=== PATIENT | female | born 1955 | race Caucasian/White ===

== ENCOUNTER → 2017-11-30 10:38 | Outpatient (CLI) | payer BC, SELFPAY ==
--- NOTE | 2017-11-30 | DI.RAD.S_ITS ---
PROCEDURE: XR LUMBAR SPINE 2-3V INDICATIONS: LUMBAGO WITH SCIATICA TECHNIQUE: 3 views of the lumbar spine were acquired. COMPARISON: None. FINDINGS: Bones: 5 bka-avg-pecaudw vertebrae are present. There is normal bony alignment. No vertebral body compression fractures. No suspicious bony lesions. There is severe degenerative disc disease at L3-L4, L4-L5 and L5-S1 with disc space narrowing and disc osteophyte complex. Mild facet arthropathy is present at L5-L5 and L5-S1. Soft tissues: Overlying bowel gas pattern is normal. No suspicious soft tissue calcifications. IMPRESSION: Degenerative disc and facet disease. Dictated by: Raul Vieyra M.D. on 11/30/2017 at 15:43 Approved by: Raul Vieyra M.D. on 11/30/2017 at 15:46
== END ==
PROVIDERS: Visit Provider Physician Assistant
DX: M51.16 Intervertebral disc disorders with radiculopathy, lumbar region (principal); M51.17 Intervertebral disc disorders with radiculopathy, lumbosacral region; M48.061 Spinal stenosis, lumbar region without neurogenic claudication; M48.07 Spinal stenosis, lumbosacral region; M47.26 Other spondylosis with radiculopathy, lumbar region; M47.27 Other spondylosis with radiculopathy, lumbosacral region
CPT/HCPCS: 72100

== ENCOUNTER 2018-01-31 13:45 | Outpatient (RCR) | payer BC, SELFPAY ==
--- NOTE | 2017-11-29 13:31 | PT.OIE ---
Past Surgical History Status post appendectomy Status post delivery (03/07/93) Status post delivery (12/22/96) Status post colonoscopy Status post surgery (04/11/14) Status post tonsillectomy and adenoidectomy Provider Visit Care Team Role Provider Type Jodi Zarco MD Attending Provider Physician Specialty: Internal Medicine Address: [address] [place] [address] Email: Physical Therapy Initial Evaluation PT-OP-A Visit Information Start: 11/28/17 11:07 Freq: Status: Active Protocol: Document 11/28/17 11:10 EA (Rec: 11/28/17 11:15 EA [id number]) Out-Patient Physical Therapy Visit Information Visit Information Visit Type Initial Evaluation Visit Start Time 10:30 Visit Stop Time 11:10 Total Visit Minutes 40 Visit Number 1 Evaluation Information Evaluation Date 11/28/17 PT-OP-B Current Condition Start: 11/28/17 11:07 Freq: Status: Active Protocol: Document 11/28/17 11:10 EA (Rec: 11/28/17 11:15 EA [id number]) Current Condition History of Current Condition Onset Date 3 wks aga Current Complaints Right low back, upper gluteal, and lateral thigh pain History of Current Condition Present condition started 3 weeks ago; state 3 days after standing hip ROM exercises. Patient reports no recall any significant injury prior to condition. Patient went to her physician and was given OTC medication as she was going to [place] for 2 weeks vacation. Patient reports pain was managed temporarily with precribed pain meds during her vacation. Today she reported that pain intensity varies with position 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 Denies loss of strength but numbness, burning and shooting pain from post buttocks down to right anterior anterolat thigh in which walking, lifting, and sitting aggravates condition. Prior Treatments and Tests Precribed pain meds Future Testing and Treatments Planned Scheduled for X-Ray MRI- as necessary. 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 Current Functional Impairments (Reported) Functional Limitations- ADL's Indep Functional Limitations- Mobility/Gait Indep Functional Limitations- Work/School On sick leave Functional Limitations- Recreation/ Unable to perform light Hobbies fitness exercises routine due to pain Personal Factors Other Personal Factors That May Effect None Therapy/Recovery PT-OP-C Subjective Start: 11/28/17 11:07 Freq: Status: Active Protocol: Document 11/28/17 11:10 EA (Rec: 11/29/17 07:35 EA [id number]) OP-PT Subjective Patient Comments Patient Comments Patient wants to eliminate low back pain 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 Patient would like to get back to her fitness routine as well. Patient Reported Progress Worse Patient Questionnaires Lower Extremity Functional Scale LEFS Score 11 LEFS Impairment 80 to 99% Impaired (Score 1-16 ) Oswestry Low Back Index Oswestry Impairment 40 to 59% Impaired (Score 40- 59) PT-OP-F Manual Assessment Start: 11/28/17 11:07 Freq: Status: Active Protocol: Document 11/28/17 11:10 EA (Rec: 11/29/17 13:27 EA [id number]) Manual Assessments Soft Tissue Assessment Soft Tissue Mobility Assessment Right hip is difficulty to assess due to muscle guarding and pain. however, patient right LE is withing functional during mobility. PT-OP-G Mobility & Gait Start: 11/28/17 11:07 Freq: Status: Active Protocol: Document 11/28/17 11:10 EA (Rec: 11/29/17 07:35 EA [id number]) OP Mobility Evaluation Transfers Sit to Stand No difficulty Bed to Chair Transfers Indep Car Transfers Indep Functional Movements Lifting and Carrying Indep with difficulty Squats With minmal difficulty OP Gait Assessment Gait Gait Assistance Required: Independent Gait Deviations General Gait Pattern Antalgic Comments Gait Comments Slight antalgic gait PT-OP-J Posture/Palpation/Skin Start: 11/28/17 11:07 Freq: Status: Active Protocol: Document 11/28/17 11:10 EA (Rec: 11/29/17 07:35 EA [id number]) Posture Evaluation Position Standing Evaluation View Lateral L-Spine Posture Increased Lordosis Palpation Assessment Location One Palpation Location Upper gluteals, Piriformis, lateral thigh Palpation Findings Muscle Guarding Tenderness Palpation Details Grade 2 tenderness, Tight piriformis, ITB PT-OP-K Range of Motion Start: 11/28/17 11:07 Freq: Status: Active Protocol: Document 11/28/17 11:10 EA (Rec: 11/29/17 07:35 EA [id number]) Lumbar Spine Range of Motion Lumbar Spine Active Degrees Testing Position standinf Flexion 50 Extension 10 Rotation Left 30 Rotation Right 30 Lateral Flexion Left 10 Lateral Flexion Right 15 ROM Limitations Soft Tissue Tightness Pain Comments Limitation due to pain and muscle guarding PT-OP-L Special Tests Start: 11/28/17 11:07 Freq: Status: Active Protocol: Document 11/28/17 11:10 EA (Rec: 11/29/17 07:35 EA [id number]) Special Tests Lumbar Spine Special Tests Straight Leg Raise Test Results + Hip Special Tests Piriformis Test Results Right + PT-OP-M Strength Start: 11/28/17 11:07 Freq: Status: Active Protocol: Document 11/28/17 11:10 EA (Rec: 11/29/17 07:35 EA [id number]) Hip Strength Hip Manual Muscle Testing Left Flexion (L2) 5 Normal Extension (S1) 5 Normal Abduction 5 Normal Adduction 5 Normal External Rotation 5 Normal Internal Rotation 5 Normal Right Reason Not Measured Pain Knee Strength Knee Manual Muscle Testing Right Flexion (S2) 5 Normal Extension (L3) 5 Normal Ankle/Foot Strength Ankle and Foot Manual Muscle Testing Right Dorsiflexion (L4) 4- Good- Plantarflexion (S1) 5 Normal Comments Pain increased with D/F and Hip flexion PT-OP-Q Treatments Start: 11/28/17 11:07 Freq: Status: Active Protocol: Document 11/28/17 11:10 EA (Rec: 11/29/17 07:35 EA [id number]) Self-Care/Home Management Treatment Education Patient Education Body Mechanics Home Exercise Program Pain Management Posture Other Education Discussed body mechanics, ice application and positionig. PT-OP-T Assessment and Plan Start: 11/28/17 11:07 Freq: Status: Active Protocol: Document 11/28/17 11:10 EA (Rec: 11/28/17 11:15 EA [id number]) Physical Therapy Assessment Rehab Potential Rehabilitation Potential Good Evaluation Complexity Number of Personal Factors/Comorbidities 1-2 Number of Body Systems Impaired 3 Clinical Presentation at Evaluation Evolving Impairments Impairments Activity Tolerance Pain Posture ROM Strength Other Concerns Barriers to Rehabilitation None Goals Three Impairment Muscle guarding/ tightness to R upper gluteals Bore Mill Operator Goal (LTG) Patient will decrease muscle guarding to enhance functional mobility LTG Duration 4 wks Two Impairment Subjective pain complaint of 8 /10 PS Bore Mill Operator Goal (LTG) Patient will reports pain at severity of 2/10 LTG Duration 4 wks One Impairment Oswetry impairment results of 78% impaired. Bore Mill Operator Goal (LTG) Patient will have Oswestry results of 20% impaired LTG Duration 4 wks Assessment Summary Assessment Pleasant 62 y/o F patient presented today with acute distress due constant burning, shooting pain to right upper gluteals down to right anterolat thigh. Patient demonstrates difficulty in transitioning from supine to sit, sit to standing and gait difficulty. Special tests reveals positive with R SLR, SB test. Strength test to right LE is not properly tested due to increasing pain. Unable to get results from DTR's due to patient's muscle guarding and pain. Patient instructed and informed with results and educated with safety and home pain management. Patient instructed to see E.R. services if necessary or if pain does not relieve with rest and pain medication. In my Professional opinion, patient would benefit with skilled PT to addressed the aforementioned issues. However, MRI, is necessary at this time to improve further care. Physical Therapy Plan Frequency and Duration Frequency of Treatment 2x/Week Duration of Treatment 8 Plan of Care Start Date 11/28/17 Plan of Care End Date 01/23/18 Therapeutic Interventions Therapeutic Interventions Home Exercise Program Joint Mobilizations Manual Therapy Patient/Caregiver Education Self-Care/Home Management Soft Tissue Mobilization Therapeutic Activities Therapeutic Exercises Modalities Cold Pack/Ice Massage Electric Stimulation Hot Packs Ultrasound Next Visit Focus/Plan Next Note Type Treatment Note Next Visit Plan Decreased symptoms: IFC/Cold, Stretch. HEP, body mechanics
--- NOTE | 2017-11-29 13:31 | PT.OPPOC ---
Provider Visit Care Team Role Provider Type Jodi Zarco MD Attending Provider Physician Specialty: Internal Medicine Address: [address] [place] [address], [id number] Email: Plan Of Care PT-OP-T Assessment and Plan Start: 11/28/17 11:07 Freq: Status: Active Protocol: Document 11/28/17 11:10 EA (Rec: 11/28/17 11:15 EA [id number]) Physical Therapy Assessment Rehab Potential Rehabilitation Potential Good Evaluation Complexity Number of Personal Factors/Comorbidities 1-2 Number of Body Systems Impaired 3 Clinical Presentation at Evaluation Evolving Impairments Impairments Activity Tolerance Pain Posture ROM Strength Other Concerns Barriers to Rehabilitation None Goals Three Impairment Muscle guarding/ tightness to R upper gluteals Care Specialist Goal (LTG) Patient will decrease muscle guarding to enhance functional mobility LTG Duration 4 wks Two Impairment Subjective pain complaint of 8 /10 PS Care Home Goal (LTG) Patient will reports pain at severity of 2/10 LTG Duration 4 wks One Impairment Oswetry impairment results of 78% impaired. Care Home Goal (LTG) Patient will have Oswestry results of 20% impaired LTG Duration 4 wks Assessment Summary Assessment Pleasant 62 y/o F patient presented today with acute distress due constant burning, shooting pain to right upper gluteals down to right anterolat thigh. Patient demonstrates difficulty in transitioning from supine to sit, sit to standing and gait difficulty. Special tests reveals positive with R SLR, SB test. Strength test to right LE is not properly tested due to increasing pain. Unable to get results from DTR's due to patient's muscle guarding and pain. Patient instructed and informed with results and educated with safety and home pain management. Patient instructed to see E.R. services if necessary or if pain does not relieve with rest and pain medication. In my Professional opinion, patient would benefit with skilled PT to addressed the aforementioned issues. However, MRI, is necessary at this time to improve further care. Physical Therapy Plan Frequency and Duration Frequency of Treatment 2x/Week Duration of Treatment 8 Plan of Care Start Date 11/28/17 Plan of Care End Date 01/23/18 Therapeutic Interventions Therapeutic Interventions Home Exercise Program Joint Mobilizations Manual Therapy Patient/Caregiver Education Self-Care/Home Management Soft Tissue Mobilization Therapeutic Activities Therapeutic Exercises Modalities Cold Pack/Ice Massage Electric Stimulation Hot Packs Ultrasound Next Visit Focus/Plan Next Note Type Treatment Note Next Visit Plan Decreased symptoms: IFC/Cold, Stretch. HEP, body mechanics Plan of Care Dates Plan of Care Start Date 11/28/17 Plan of Care End Date 01/23/18 Please Sign and Return: I have reviewed this Plan of Care and certify that the skilled therapy services above are required to meet the patient?s needs. Physician Signature Date Printed Name and Credentials Clinical Instructor Signature Printed Name and Credentials
--- NOTE | 2017-11-30 12:10 | PT.OTN ---
Physical Therapy Treatment Note PT-OP-A Visit Information Start: 11/28/17 11:07 Freq: Status: Active Protocol: Document 11/30/17 10:20 EA (Rec: 11/30/17 10:30 EA [id number]) Out-Patient Physical Therapy Visit Information Visit Information Visit Type Treatment Note Visit Start Time 09:45 Visit Stop Time 10:23 Total Visit Minutes 38 Visit Number 2 PT-OP-B Current Condition Start: 11/28/17 11:07 Freq: Status: Active Protocol: Document 11/28/17 11:10 EA (Rec: 11/28/17 11:15 EA [id number]) Current Condition History of Current Condition Onset Date 3 wks aga Current Complaints Right low back, upper gluteal, and lateral thigh pain History of Current Condition Present condition started 3 weeks ago; state 3 days after standing hip ROM exercises. Patient reports no recall any significant injury prior to condition. Patient went to her physician and was given OTC medication as she was going to [place] for 2 weeks vacation. Patient reports pain was managed temporarily with precribed pain meds during her vacation. Today she reported that pain intensity varies with position 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 Denies loss of strength but numbness, burning and shooting pain from post buttocks down to right anterior anterolat thigh in which walking, lifting, and sitting aggravates condition. Prior Treatments and Tests Precribed pain meds Future Testing and Treatments Planned Scheduled for X-Ray MRI- as necessary. 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 Current Functional Impairments (Reported) Functional Limitations- ADL's Indep Functional Limitations- Mobility/Gait Indep Functional Limitations- Work/School On sick leave Functional Limitations- Recreation/ Unable to perform light Hobbies fitness exercises routine due to pain Personal Factors Other Personal Factors That May Effect None Therapy/Recovery PT-OP-C Subjective Start: 11/28/17 11:07 Freq: Status: Active Protocol: Document 11/30/17 10:20 EA (Rec: 11/30/17 10:30 EA [id number]) OP-PT Subjective Patient Comments Patient Comments Patient states pain still comes and goes and times is severe. PT-OP-F Manual Assessment Start: 11/28/17 11:07 Freq: Status: Active Protocol: Document 11/28/17 11:10 EA (Rec: 11/29/17 13:27 EA [id number]) Manual Assessments Soft Tissue Assessment Soft Tissue Mobility Assessment Right hip is difficulty to assess due to muscle guarding and pain. however, patient right LE is withing functional during mobility. PT-OP-G Mobility & Gait Start: 11/28/17 11:07 Freq: Status: Active Protocol: Document 11/28/17 11:10 EA (Rec: 11/29/17 07:35 EA [id number]) OP Mobility Evaluation Transfers Sit to Stand No difficulty Bed to Chair Transfers Indep Car Transfers Indep Functional Movements Lifting and Carrying Indep with difficulty Squats With minmal difficulty OP Gait Assessment Gait Gait Assistance Required: Independent Gait Deviations General Gait Pattern Antalgic Comments Gait Comments Slight antalgic gait PT-OP-J Posture/Palpation/Skin Start: 11/28/17 11:07 Freq: Status: Active Protocol: Document 11/28/17 11:10 EA (Rec: 11/29/17 07:35 EA [id number]) Posture Evaluation Position Standing Evaluation View Lateral L-Spine Posture Increased Lordosis Palpation Assessment Location One Palpation Location Upper gluteals, Piriformis, lateral thigh Palpation Findings Muscle Guarding Tenderness Palpation Details Grade 2 tenderness, Tight piriformis, ITB PT-OP-K Range of Motion Start: 11/28/17 11:07 Freq: Status: Active Protocol: Document 11/28/17 11:10 EA (Rec: 11/29/17 07:35 EA [id number]) Lumbar Spine Range of Motion Lumbar Spine Active Degrees Testing Position standinf Flexion 50 Extension 10 Rotation Left 30 Rotation Right 30 Lateral Flexion Left 10 Lateral Flexion Right 15 ROM Limitations Soft Tissue Tightness Pain Comments Limitation due to pain and muscle guarding PT-OP-L Special Tests Start: 11/28/17 11:07 Freq: Status: Active Protocol: Document 11/28/17 11:10 EA (Rec: 11/29/17 07:35 EA [id number]) Special Tests Lumbar Spine Special Tests Straight Leg Raise Test Results + Hip Special Tests Piriformis Test Results Right + PT-OP-M Strength Start: 11/28/17 11:07 Freq: Status: Active Protocol: Document 11/28/17 11:10 EA (Rec: 11/29/17 07:35 EA [id number]) Hip Strength Hip Manual Muscle Testing Left Flexion (L2) 5 Normal Extension (S1) 5 Normal Abduction 5 Normal Adduction 5 Normal External Rotation 5 Normal Internal Rotation 5 Normal Right Reason Not Measured Pain Knee Strength Knee Manual Muscle Testing Right Flexion (S2) 5 Normal Extension (L3) 5 Normal Ankle/Foot Strength Ankle and Foot Manual Muscle Testing Right Dorsiflexion (L4) 4- Good- Plantarflexion (S1) 5 Normal Comments Pain increased with D/F and Hip flexion PT-OP-Q Treatments Start: 11/28/17 11:07 Freq: Status: Active Protocol: Document 11/30/17 10:20 EA (Rec: 11/30/17 10:30 EA [id number]) Therapeutic Exercises Supine Exercises 3 Supine Exercise Name Figure of 4 Reps/Minutes x 30 SH 2 Supine Exercise Name SKTC with PPT Reps/Minutes x 5SH x 5 reps each leg 1 Supine Exercise Name PPT Reps/Minutes x 5 SH x 10 reps Prone Exercises 1 Prone Exercise Name Quadruped lumabr flexion Reps/Minutes x 10 reps x 1 Self-Care/Home Management Treatment Education Patient Education Home Exercise Program Other Education HEP copy provided, demonstrates performed and educated. Advised proper bed positioning PT-OP-R Modalities Start: 11/28/17 11:07 Freq: Status: Active Protocol: Document 11/30/17 10:20 EA (Rec: 11/30/17 10:30 EA [id number]) Electric Stimulation Electric Stimulation Interferential Current (IFC) Body Location Right upper gluteals and paralumbars Duration (Minutes) 15 Intensity 9 Patient Position Hooklying Combined With Heat/Cold Cold Pack PT-OP-T Assessment and Plan Start: 11/28/17 11:07 Freq: Status: Active Protocol: Document 11/30/17 10:20 EA (Rec: 11/30/17 10:30 EA [id number]) Physical Therapy Assessment Assessment Summary Assessment Patient is quite teary and had difficulty with figure of 4 stretch, however tolerated with adjusted range. Patient well performed HEP and understands safety. Physical Therapy Plan Next Visit Focus/Plan Next Visit Plan Cont to with current plan. Add cardio exercises as tolerated and standing wall exercises.
--- NOTE | 2017-12-05 12:22 | PT.OTN ---
Physical Therapy Treatment Note PT-OP-A Visit Information Start: 11/28/17 11:07 Freq: Status: Active Protocol: Document 12/05/17 09:43 EA (Rec: 12/05/17 09:49 EA [id number]) Out-Patient Physical Therapy Visit Information Visit Information Visit Type Treatment Note Visit Start Time 09:45 Visit Stop Time 10:25 Total Visit Minutes 40 Visit Number 3 PT-OP-B Current Condition Start: 11/28/17 11:07 Freq: Status: Active Protocol: Document 11/28/17 11:10 EA (Rec: 11/28/17 11:15 EA [id number]) Current Condition History of Current Condition Onset Date 3 wks aga Current Complaints Right low back, upper gluteal, and lateral thigh pain History of Current Condition Present condition started 3 weeks ago; state 3 days after standing hip ROM exercises. Patient reports no recall any significant injury prior to condition. Patient went to her physician and was given OTC medication as she was going to [place] for 2 weeks vacation. Patient reports pain was managed temporarily with precribed pain meds during her vacation. Today she reported that pain intensity varies with position 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 Denies loss of strength but numbness, burning and shooting pain from post buttocks down to right anterior anterolat thigh in which walking, lifting, and sitting aggravates condition. Prior Treatments and Tests Precribed pain meds Future Testing and Treatments Planned Scheduled for X-Ray MRI- as necessary. 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 Current Functional Impairments (Reported) Functional Limitations- ADL's Indep Functional Limitations- Mobility/Gait Indep Functional Limitations- Work/School On sick leave Functional Limitations- Recreation/ Unable to perform light Hobbies fitness exercises routine due to pain Personal Factors Other Personal Factors That May Effect None Therapy/Recovery PT-OP-C Subjective Start: 11/28/17 11:07 Freq: Status: Active Protocol: Document 12/05/17 09:52 EA (Rec: 12/05/17 10:15 EA [id number]) OP-PT Subjective Patient Comments Patient Comments Pt reports she is much feeling better today than last week. Patient Reported Progress Improving PT-OP-F Manual Assessment Start: 11/28/17 11:07 Freq: Status: Active Protocol: Document 11/28/17 11:10 EA (Rec: 11/29/17 13:27 EA [id number]) Manual Assessments Soft Tissue Assessment Soft Tissue Mobility Assessment Right hip is difficulty to assess due to muscle guarding and pain. however, patient right LE is withing functional during mobility. PT-OP-G Mobility & Gait Start: 11/28/17 11:07 Freq: Status: Active Protocol: Document 11/28/17 11:10 EA (Rec: 11/29/17 07:35 EA [id number]) OP Mobility Evaluation Transfers Sit to Stand No difficulty Bed to Chair Transfers Indep Car Transfers Indep Functional Movements Lifting and Carrying Indep with difficulty Squats With minmal difficulty OP Gait Assessment Gait Gait Assistance Required: Independent Gait Deviations General Gait Pattern Antalgic Comments Gait Comments Slight antalgic gait PT-OP-J Posture/Palpation/Skin Start: 11/28/17 11:07 Freq: Status: Active Protocol: Document 11/28/17 11:10 EA (Rec: 11/29/17 07:35 EA [id number]) Posture Evaluation Position Standing Evaluation View Lateral L-Spine Posture Increased Lordosis Palpation Assessment Location One Palpation Location Upper gluteals, Piriformis, lateral thigh Palpation Findings Muscle Guarding Tenderness Palpation Details Grade 2 tenderness, Tight piriformis, ITB PT-OP-K Range of Motion Start: 11/28/17 11:07 Freq: Status: Active Protocol: Document 11/28/17 11:10 EA (Rec: 11/29/17 07:35 EA [id number]) Lumbar Spine Range of Motion Lumbar Spine Active Degrees Testing Position standinf Flexion 50 Extension 10 Rotation Left 30 Rotation Right 30 Lateral Flexion Left 10 Lateral Flexion Right 15 ROM Limitations Soft Tissue Tightness Pain Comments Limitation due to pain and muscle guarding PT-OP-L Special Tests Start: 11/28/17 11:07 Freq: Status: Active Protocol: Document 11/28/17 11:10 EA (Rec: 11/29/17 07:35 EA [id number]) Special Tests Lumbar Spine Special Tests Straight Leg Raise Test Results + Hip Special Tests Piriformis Test Results Right + PT-OP-M Strength Start: 11/28/17 11:07 Freq: Status: Active Protocol: Document 11/28/17 11:10 EA (Rec: 11/29/17 07:35 EA [id number]) Hip Strength Hip Manual Muscle Testing Left Flexion (L2) 5 Normal Extension (S1) 5 Normal Abduction 5 Normal Adduction 5 Normal External Rotation 5 Normal Internal Rotation 5 Normal Right Reason Not Measured Pain Knee Strength Knee Manual Muscle Testing Right Flexion (S2) 5 Normal Extension (L3) 5 Normal Ankle/Foot Strength Ankle and Foot Manual Muscle Testing Right Dorsiflexion (L4) 4- Good- Plantarflexion (S1) 5 Normal Comments Pain increased with D/F and Hip flexion PT-OP-Q Treatments Start: 11/28/17 11:07 Freq: Status: Active Protocol: Document 12/05/17 09:52 EA (Rec: 12/05/17 10:15 EA [id number]) Cardio Equipment Recumbent Stepper (Sci-Fit) Duration (Minutes) 5 Resistance 1.5 Seat Position 12 Therapeutic Exercises Supine Exercises 4 Supine Exercise Name PPT with marching Reps/Minutes x 5SH x 5 reps 3 Supine Exercise Name Figure of 4 Reps/Minutes x 30 SH 2 Supine Exercise Name SKTC with PPT Reps/Minutes x 5SH x 5 reps each leg 1 Supine Exercise Name PPT Reps/Minutes x 5 SH x 10 reps Prone Exercises 1 Prone Exercise Name Quadruped lumbar flexion Reps/Minutes x 10 reps x 1 Manual Therapy Treatment Soft Tissue Mobilization 1 Body Location upper gluteals, periformis Mobilization Type Myofascial Release Sustained Pressure Intensity/Depth Superficial Body Position Sidelying PT-OP-R Modalities Start: 11/28/17 11:07 Freq: Status: Active Protocol: Document 12/05/17 09:52 EA (Rec: 12/05/17 10:15 EA [id number]) Electric Stimulation Electric Stimulation Interferential Current (IFC) Body Location Right upper gluteals and paralumbars Duration (Minutes) 15 Intensity 9 Patient Position Hooklying Combined With Heat/Cold Cold Pack PT-OP-T Assessment and Plan Start: 11/28/17 11:07 Freq: Status: Active Protocol: Document 12/05/17 09:52 EA (Rec: 12/05/17 10:15 EA [id number]) Physical Therapy Assessment Assessment Summary Assessment Tolerated supine exercises; quite hard to tolerate STM. Patient showed less apprehension in all Functional mobility at this time. Cont with current plan. Physical Therapy Plan Next Visit Focus/Plan Next Note Type Treatment Note Next Visit Plan Cont with current plan.
--- NOTE | 2017-12-07 10:35 | PT.OTN ---
Physical Therapy Treatment Note PT-OP-A Visit Information Start: 11/28/17 11:07 Freq: Status: Active Protocol: Document 12/07/17 10:31 EA (Rec: 12/07/17 10:31 EA [id number]) Out-Patient Physical Therapy Visit Information Visit Information Visit Type Treatment Note Visit Start Time 09:45 Visit Stop Time 10:25 Total Visit Minutes 40 Visit Number 4 PT-OP-B Current Condition Start: 11/28/17 11:07 Freq: Status: Active Protocol: Document 11/28/17 11:10 EA (Rec: 11/28/17 11:15 EA [id number]) Current Condition History of Current Condition Onset Date 3 wks aga Current Complaints Right low back, upper gluteal, and lateral thigh pain History of Current Condition Present condition started 3 weeks ago; state 3 days after standing hip ROM exercises. Patient reports no recall any significant injury prior to condition. Patient went to her physician and was given OTC medication as she was going to [place] for 2 weeks vacation. Patient reports pain was managed temporarily with precribed pain meds during her vacation. Today she reported that pain intensity varies with position 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 Denies loss of strength but numbness, burning and shooting pain from post buttocks down to right anterior anterolat thigh in which walking, lifting, and sitting aggravates condition. Prior Treatments and Tests Precribed pain meds Future Testing and Treatments Planned Scheduled for X-Ray MRI- as necessary. 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 Current Functional Impairments (Reported) Functional Limitations- ADL's Indep Functional Limitations- Mobility/Gait Indep Functional Limitations- Work/School On sick leave Functional Limitations- Recreation/ Unable to perform light Hobbies fitness exercises routine due to pain Personal Factors Other Personal Factors That May Effect None Therapy/Recovery PT-OP-C Subjective Start: 11/28/17 11:07 Freq: Status: Active Protocol: Document 12/07/17 10:16 EA (Rec: 12/07/17 10:31 EA [id number]) OP-PT Subjective Patient Comments Patient Comments Pt reports she is improving as she is able to carry her 30 lbs grandchild; states pain frequency is nor twice a day. Pt also reports that her neeck is quite sore after last excercise session and she mentioned about partial sit-up . Patient states today that she is much better and no neck pain. Patient also mention [place] she will be seeing her ortho surgeon. PT-OP-F Manual Assessment Start: 11/28/17 11:07 Freq: Status: Active Protocol: Document 11/28/17 11:10 EA (Rec: 11/29/17 13:27 EA [id number]) Manual Assessments Soft Tissue Assessment Soft Tissue Mobility Assessment Right hip is difficulty to assess due to muscle guarding and pain. however, patient right LE is withing functional during mobility. PT-OP-G Mobility & Gait Start: 11/28/17 11:07 Freq: Status: Active Protocol: Document 11/28/17 11:10 EA (Rec: 11/29/17 07:35 EA [id number]) OP Mobility Evaluation Transfers Sit to Stand No difficulty Bed to Chair Transfers Indep Car Transfers Indep Functional Movements Lifting and Carrying Indep with difficulty Squats With minmal difficulty OP Gait Assessment Gait Gait Assistance Required: Independent Gait Deviations General Gait Pattern Antalgic Comments Gait Comments Slight antalgic gait PT-OP-J Posture/Palpation/Skin Start: 11/28/17 11:07 Freq: Status: Active Protocol: Document 11/28/17 11:10 EA (Rec: 11/29/17 07:35 EA [id number]) Posture Evaluation Position Standing Evaluation View Lateral L-Spine Posture Increased Lordosis Palpation Assessment Location One Palpation Location Upper gluteals, Piriformis, lateral thigh Palpation Findings Muscle Guarding Tenderness Palpation Details Grade 2 tenderness, Tight piriformis, ITB PT-OP-K Range of Motion Start: 11/28/17 11:07 Freq: Status: Active Protocol: Document 11/28/17 11:10 EA (Rec: 11/29/17 07:35 EA [id number]) Lumbar Spine Range of Motion Lumbar Spine Active Degrees Testing Position standinf Flexion 50 Extension 10 Rotation Left 30 Rotation Right 30 Lateral Flexion Left 10 Lateral Flexion Right 15 ROM Limitations Soft Tissue Tightness Pain Comments Limitation due to pain and muscle guarding PT-OP-L Special Tests Start: 11/28/17 11:07 Freq: Status: Active Protocol: Document 11/28/17 11:10 EA (Rec: 11/29/17 07:35 EA [id number]) Special Tests Lumbar Spine Special Tests Straight Leg Raise Test Results + Hip Special Tests Piriformis Test Results Right + PT-OP-M Strength Start: 11/28/17 11:07 Freq: Status: Active Protocol: Document 11/28/17 11:10 EA (Rec: 11/29/17 07:35 EA [id number]) Hip Strength Hip Manual Muscle Testing Left Flexion (L2) 5 Normal Extension (S1) 5 Normal Abduction 5 Normal Adduction 5 Normal External Rotation 5 Normal Internal Rotation 5 Normal Right Reason Not Measured Pain Knee Strength Knee Manual Muscle Testing Right Flexion (S2) 5 Normal Extension (L3) 5 Normal Ankle/Foot Strength Ankle and Foot Manual Muscle Testing Right Dorsiflexion (L4) 4- Good- Plantarflexion (S1) 5 Normal Comments Pain increased with D/F and Hip flexion PT-OP-Q Treatments Start: 11/28/17 11:07 Freq: Status: Active Protocol: Document 12/07/17 10:16 EA (Rec: 12/07/17 10:31 EA [id number]) Cardio Equipment Recumbent Stepper (Sci-Fit) Duration (Minutes) 5 Resistance 1 Seat Position 12 Therapeutic Exercises Supine Exercises 4 Supine Exercise Name PPT with marching Reps/Minutes x 5SH x 5 reps 3 Supine Exercise Name Figure of 4 Reps/Minutes x 30 SH 2 Supine Exercise Name SKTC with PPT Reps/Minutes x 5SH x 5 reps each leg 1 Supine Exercise Name PPT Reps/Minutes x 5 SH x 10 reps Standing Exercises 1 Standing Exercise Name Floor to knee basket lift Resistance 8 lbs Reps/Minutes x 2 reps Comments Proper body mechanics was implemented. Manual Therapy Treatment Soft Tissue Mobilization 1 Body Location upper gluteals, periformis Mobilization Type Myofascial Release Sustained Pressure Intensity/Depth Superficial Body Position Sidelying Comments not performed due to decreased tolerance. PT-OP-R Modalities Start: 11/28/17 11:07 Freq: Status: Active Protocol: Document 12/07/17 10:16 EA (Rec: 12/07/17 10:31 EA [id number]) Electric Stimulation Electric Stimulation Interferential Current (IFC) Body Location Right upper gluteals and paralumbars Duration (Minutes) 15 Intensity 10 Patient Position Hooklying Combined With Heat/Cold Hot Pack Comments agreeable to try hot pack to right low back and hip Hot Pack/Cold Pack Treatment Hot Pack Location Right low back and post hip PT-OP-T Assessment and Plan Start: 11/28/17 11:07 Freq: Status: Active Protocol: Document 12/07/17 10:16 EA (Rec: 12/07/17 10:31 EA [id number]) Physical Therapy Assessment Assessment Summary Assessment Tolerated therex well with no discomfort noted except with manual thera exercises which was not performed today. No noted any signs of acute distress before and after session while at rest and with all mobility. Pt was advised to seek her primary care physician if symptoms does not improve with therapy. Physical Therapy Plan Next Visit Focus/Plan Next Note Type Treatment Note Next Visit Plan Cont with current plan. re- assess previous treatment response and as well with the use of heat.
--- NOTE | 2017-12-13 12:12 | PT.OTN ---
Physical Therapy Treatment Note PT-OP-A Visit Information Start: 11/28/17 11:07 Freq: Status: Active Protocol: Document 12/07/17 10:31 EA (Rec: 12/07/17 10:31 EA [id number]) Out-Patient Physical Therapy Visit Information Visit Information Visit Type Treatment Note Visit Start Time 09:45 Visit Stop Time 10:25 Total Visit Minutes 40 Visit Number 4 PT-OP-B Current Condition Start: 11/28/17 11:07 Freq: Status: Active Protocol: Document 11/28/17 11:10 EA (Rec: 11/28/17 11:15 EA [id number]) Current Condition History of Current Condition Onset Date 3 wks aga Current Complaints Right low back, upper gluteal, and lateral thigh pain History of Current Condition Present condition started 3 weeks ago; state 3 days after standing hip ROM exercises. Patient reports no recall any significant injury prior to condition. Patient went to her physician and was given OTC medication as she was going to [place] for 2 weeks vacation. Patient reports pain was managed temporarily with precribed pain meds during her vacation. Today she reported that pain intensity varies with position 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 Denies loss of strength but numbness, burning and shooting pain from post buttocks down to right anterior anterolat thigh in which walking, lifting, and sitting aggravates condition. Prior Treatments and Tests Precribed pain meds Future Testing and Treatments Planned Scheduled for X-Ray MRI- as necessary. 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 Current Functional Impairments (Reported) Functional Limitations- ADL's Indep Functional Limitations- Mobility/Gait Indep Functional Limitations- Work/School On sick leave Functional Limitations- Recreation/ Unable to perform light Hobbies fitness exercises routine due to pain Personal Factors Other Personal Factors That May Effect None Therapy/Recovery PT-OP-C Subjective Start: 11/28/17 11:07 Freq: Status: Active Protocol: Document 12/13/17 10:38 EA (Rec: 12/13/17 11:07 EA [id number]) OP-PT Subjective Patient Comments Patient Comments Pt ambulates today with no signs of apprehension or acute distress. 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 Patient also reports that she jhoana right knee discomfort after doing hip stretch, however much feeling better now. Patient also reports use of heat last session made her back losen. PT-OP-F Manual Assessment Start: 11/28/17 11:07 Freq: Status: Active Protocol: Document 11/28/17 11:10 EA (Rec: 11/29/17 13:27 EA [id number]) Manual Assessments Soft Tissue Assessment Soft Tissue Mobility Assessment Right hip is difficulty to assess due to muscle guarding and pain. however, patient right LE is withing functional during mobility. PT-OP-G Mobility & Gait Start: 11/28/17 11:07 Freq: Status: Active Protocol: Document 11/28/17 11:10 EA (Rec: 11/29/17 07:35 EA [id number]) OP Mobility Evaluation Transfers Sit to Stand No difficulty Bed to Chair Transfers Indep Car Transfers Indep Functional Movements Lifting and Carrying Indep with difficulty Squats With minmal difficulty OP Gait Assessment Gait Gait Assistance Required: Independent Gait Deviations General Gait Pattern Antalgic Comments Gait Comments Slight antalgic gait PT-OP-J Posture/Palpation/Skin Start: 11/28/17 11:07 Freq: Status: Active Protocol: Document 11/28/17 11:10 EA (Rec: 11/29/17 07:35 EA [id number]) Posture Evaluation Position Standing Evaluation View Lateral L-Spine Posture Increased Lordosis Palpation Assessment Location One Palpation Location Upper gluteals, Piriformis, lateral thigh Palpation Findings Muscle Guarding Tenderness Palpation Details Grade 2 tenderness, Tight piriformis, ITB PT-OP-K Range of Motion Start: 11/28/17 11:07 Freq: Status: Active Protocol: Document 11/28/17 11:10 EA (Rec: 11/29/17 07:35 EA [id number]) Lumbar Spine Range of Motion Lumbar Spine Active Degrees Testing Position standinf Flexion 50 Extension 10 Rotation Left 30 Rotation Right 30 Lateral Flexion Left 10 Lateral Flexion Right 15 ROM Limitations Soft Tissue Tightness Pain Comments Limitation due to pain and muscle guarding PT-OP-L Special Tests Start: 11/28/17 11:07 Freq: Status: Active Protocol: Document 11/28/17 11:10 EA (Rec: 11/29/17 07:35 EA [id number]) Special Tests Lumbar Spine Special Tests Straight Leg Raise Test Results + Hip Special Tests Piriformis Test Results Right + PT-OP-M Strength Start: 11/28/17 11:07 Freq: Status: Active Protocol: Document 11/28/17 11:10 EA (Rec: 11/29/17 07:35 EA [id number]) Hip Strength Hip Manual Muscle Testing Left Flexion (L2) 5 Normal Extension (S1) 5 Normal Abduction 5 Normal Adduction 5 Normal External Rotation 5 Normal Internal Rotation 5 Normal Right Reason Not Measured Pain Knee Strength Knee Manual Muscle Testing Right Flexion (S2) 5 Normal Extension (L3) 5 Normal Ankle/Foot Strength Ankle and Foot Manual Muscle Testing Right Dorsiflexion (L4) 4- Good- Plantarflexion (S1) 5 Normal Comments Pain increased with D/F and Hip flexion PT-OP-Q Treatments Start: 11/28/17 11:07 Freq: Status: Active Protocol: Document 12/13/17 10:38 EA (Rec: 12/13/17 11:07 EA [id number]) Cardio Equipment Recumbent Bicycle Duration (Minutes) 5 Resistance 4 Therapeutic Exercises Supine Exercises 4 Supine Exercise Name PPT with marching Reps/Minutes x 5SH x 5 reps 3 Supine Exercise Name Figure of 4 Reps/Minutes x 30 SH 2 Supine Exercise Name SKTC with PPT Reps/Minutes x 5SH x 5 reps each leg 1 Supine Exercise Name PPT Reps/Minutes x 5 SH x 10 reps Standing Exercises 1 Standing Exercise Name wall squat with PPT Reps/Minutes x 5SH x 5 reps x 2 sets PT-OP-R Modalities Start: 11/28/17 11:07 Freq: Status: Active Protocol: Document 12/13/17 10:38 EA (Rec: 12/13/17 11:07 EA [id number]) Electric Stimulation Electric Stimulation Interferential Current (IFC) Body Location Right upper gluteals and paralumbars Duration (Minutes) 15 Intensity 10 Patient Position Hooklying Combined With Heat/Cold Hot Pack Comments agreeable to try hot pack to right low back and hip Hot Pack/Cold Pack Treatment Hot Pack Location Right low back and post hip PT-OP-T Assessment and Plan Start: 11/28/17 11:07 Freq: Status: Active Protocol: Document 12/13/17 10:38 EA (Rec: 12/13/17 11:07 EA [id number]) Physical Therapy Assessment Assessment Summary Assessment No noted of any discomfort during therex except with lower trunk rotation stretch. Very slight tenderness noted only in low back and R upper gluteals during palpation. Pt requested to get schedule after seeing her ortho doctor seven days from now. Patient is progressing at this time. Physical Therapy Plan Next Visit Focus/Plan Next Note Type Treatment Note Next Visit Plan Cont with current plan; re- assess
--- NOTE | 2017-12-27 13:59 | PT.OTN ---
Physical Therapy Treatment Note PT-OP-A Visit Information Start: 11/28/17 11:07 Freq: Status: Active Protocol: Document 12/27/17 13:06 EA (Rec: 12/27/17 13:48 EA [id number]) Out-Patient Physical Therapy Visit Information Visit Information Visit Type Treatment Note Visit Start Time 13:00 Visit Stop Time 13:45 Total Visit Minutes 40 PT-OP-B Current Condition Start: 11/28/17 11:07 Freq: Status: Active Protocol: Document 11/28/17 11:10 EA (Rec: 11/28/17 11:15 EA [id number]) Current Condition History of Current Condition Onset Date 3 wks aga Current Complaints Right low back, upper gluteal, and lateral thigh pain History of Current Condition Present condition started 3 weeks ago; state 3 days after standing hip ROM exercises. Patient reports no recall any significant injury prior to condition. Patient went to her physician and was given OTC medication as she was going to [place] for 2 weeks vacation. Patient reports pain was managed temporarily with precribed pain meds during her vacation. Today she reported that pain intensity varies with position 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 Denies loss of strength but numbness, burning and shooting pain from post buttocks down to right anterior anterolat thigh in which walking, lifting, and sitting aggravates condition. Prior Treatments and Tests Precribed pain meds Future Testing and Treatments Planned Scheduled for X-Ray MRI- as necessary. 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 Current Functional Impairments (Reported) Functional Limitations- ADL's Indep Functional Limitations- Mobility/Gait Indep Functional Limitations- Work/School On sick leave Functional Limitations- Recreation/ Unable to perform light Hobbies fitness exercises routine due to pain Personal Factors Other Personal Factors That May Effect None Therapy/Recovery PT-OP-C Subjective Start: 11/28/17 11:07 Freq: Status: Active Protocol: Document 12/27/17 13:06 EA (Rec: 12/27/17 13:48 EA [id number]) OP-PT Subjective Patient Comments Patient Comments Pt reports that she is not confident to come back to work tomoorrow as she scare it might aggravate the back; states no pain but stiffness to right hip and denies weaknes to hip region. Patient also reports doctor recommends no more than 25 lbs lifting restrictions. Patient also brought MRI reports that indicated L2-L3 disc extrusion. Patient Reported Progress Improving PT-OP-F Manual Assessment Start: 11/28/17 11:07 Freq: Status: Active Protocol: Document 11/28/17 11:10 EA (Rec: 11/29/17 13:27 EA [id number]) Manual Assessments Soft Tissue Assessment Soft Tissue Mobility Assessment Right hip is difficulty to assess due to muscle guarding and pain. however, patient right LE is withing functional during mobility. PT-OP-G Mobility & Gait Start: 11/28/17 11:07 Freq: Status: Active Protocol: Document 11/28/17 11:10 EA (Rec: 11/29/17 07:35 EA [id number]) OP Mobility Evaluation Transfers Sit to Stand No difficulty Bed to Chair Transfers Indep Car Transfers Indep Functional Movements Lifting and Carrying Indep with difficulty Squats With minmal difficulty OP Gait Assessment Gait Gait Assistance Required: Independent Gait Deviations General Gait Pattern Antalgic Comments Gait Comments Slight antalgic gait PT-OP-J Posture/Palpation/Skin Start: 11/28/17 11:07 Freq: Status: Active Protocol: Document 11/28/17 11:10 EA (Rec: 11/29/17 07:35 EA [id number]) Posture Evaluation Position Standing Evaluation View Lateral L-Spine Posture Increased Lordosis Palpation Assessment Location One Palpation Location Upper gluteals, Piriformis, lateral thigh Palpation Findings Muscle Guarding Tenderness Palpation Details Grade 2 tenderness, Tight piriformis, ITB PT-OP-K Range of Motion Start: 11/28/17 11:07 Freq: Status: Active Protocol: Document 11/28/17 11:10 EA (Rec: 11/29/17 07:35 EA [id number]) Lumbar Spine Range of Motion Lumbar Spine Active Degrees Testing Position standinf Flexion 50 Extension 10 Rotation Left 30 Rotation Right 30 Lateral Flexion Left 10 Lateral Flexion Right 15 ROM Limitations Soft Tissue Tightness Pain Comments Limitation due to pain and muscle guarding PT-OP-L Special Tests Start: 11/28/17 11:07 Freq: Status: Active Protocol: Document 11/28/17 11:10 EA (Rec: 11/29/17 07:35 EA [id number]) Special Tests Lumbar Spine Special Tests Straight Leg Raise Test Results + Hip Special Tests Piriformis Test Results Right + PT-OP-M Strength Start: 11/28/17 11:07 Freq: Status: Active Protocol: Document 11/28/17 11:10 EA (Rec: 11/29/17 07:35 EA [id number]) Hip Strength Hip Manual Muscle Testing Left Flexion (L2) 5 Normal Extension (S1) 5 Normal Abduction 5 Normal Adduction 5 Normal External Rotation 5 Normal Internal Rotation 5 Normal Right Reason Not Measured Pain Knee Strength Knee Manual Muscle Testing Right Flexion (S2) 5 Normal Extension (L3) 5 Normal Ankle/Foot Strength Ankle and Foot Manual Muscle Testing Right Dorsiflexion (L4) 4- Good- Plantarflexion (S1) 5 Normal Comments Pain increased with D/F and Hip flexion PT-OP-Q Treatments Start: 11/28/17 11:07 Freq: Status: Active Protocol: Document 12/27/17 13:06 EA (Rec: 12/27/17 13:48 EA [id number]) Cardio Equipment Recumbent Stepper (Sci-Fit) Duration (Minutes) 6 Resistance 1 Seat Position 12 Therapeutic Exercises Supine Exercises 4 Supine Exercise Name PPT with marching Reps/Minutes x 5SH x 5 reps 2 Supine Exercise Name SKTC with PPT Reps/Minutes x 5SH x 5 reps each leg 1 Supine Exercise Name PPT Reps/Minutes x 5 SH x 10 reps Prone Exercises 2 Prone Exercise Name QL stretch: child pose Reps/Minutes x 15 SH x 3 reps 1 Prone Exercise Name Quadruped lumbar flexion Reps/Minutes x 10 reps x 1 Standing Exercises 2 Standing Exercise Name sit to stand squat Reps/Minutes x 10 reps 1 Standing Exercise Name wall squat with PPT Reps/Minutes x 5SH x 5 reps x 2 sets Therapeutic Activity Therapeutic Activity 1 Name Floor to waist lift Reps/Minutes x 5 reps x 2 sets Comments Body mechanics 5-10 lbs PT-OP-R Modalities Start: 11/28/17 11:07 Freq: Status: Active Protocol: Document 12/27/17 13:06 EA (Rec: 12/27/17 13:48 EA [id number]) Hot Pack/Cold Pack Treatment Hot Pack Location Right low back and post hip PT-OP-T Assessment and Plan Start: 11/28/17 11:07 Freq: Status: Active Protocol: Document 12/27/17 13:06 YOHAN (Rec: 12/27/17 13:48 EA [id number]) Physical Therapy Assessment Assessment Summary Assessment 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 No increased in symptoms noted at this time. Patient is progressing well. 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 Physical Therapy Plan Next Visit Focus/Plan Next Note Type Treatment Note Next Visit Plan Advance as tolerated; standing core exercises
--- NOTE | 2018-01-03 17:09 | PT.OTN ---
Physical Therapy Treatment Note PT-OP-A Visit Information Start: 11/28/17 11:07 Freq: Status: Active Protocol: Document 01/03/18 13:06 EA (Rec: 01/03/18 13:44 EA [id number]) Out-Patient Physical Therapy Visit Information Visit Information Visit Type Treatment Note Visit Start Time 13:00 Visit Stop Time 13:45 Total Visit Minutes 40 Visit Number 6 PT-OP-B Current Condition Start: 11/28/17 11:07 Freq: Status: Active Protocol: Document 11/28/17 11:10 EA (Rec: 11/28/17 11:15 EA [id number]) Current Condition History of Current Condition Onset Date 3 wks aga Current Complaints Right low back, upper gluteal, and lateral thigh pain History of Current Condition Present condition started 3 weeks ago; state 3 days after standing hip ROM exercises. Patient reports no recall any significant injury prior to condition. Patient went to her physician and was given OTC medication as she was going to [place] for 2 weeks vacation. Patient reports pain was managed temporarily with precribed pain meds during her vacation. Today she reported that pain intensity varies with position 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 Denies loss of strength but numbness, burning and shooting pain from post buttocks down to right anterior anterolat thigh in which walking, lifting, and sitting aggravates condition. Prior Treatments and Tests Precribed pain meds Future Testing and Treatments Planned Scheduled for X-Ray MRI- as necessary. 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 Current Functional Impairments (Reported) Functional Limitations- ADL's Indep Functional Limitations- Mobility/Gait Indep Functional Limitations- Work/School On sick leave Functional Limitations- Recreation/ Unable to perform light Hobbies fitness exercises routine due to pain Personal Factors Other Personal Factors That May Effect None Therapy/Recovery PT-OP-C Subjective Start: 11/28/17 11:07 Freq: Status: Active Protocol: Document 01/03/18 13:06 EA (Rec: 01/03/18 13:44 EA [id number]) OP-PT Subjective Patient Comments Patient Comments Pt reports that she did not go back to work as work due to restrictions; reports no back pain but stiff. Pt reports she has been walking 20 mins a day and does regular HEP. Patient Reported Progress Improving PT-OP-F Manual Assessment Start: 11/28/17 11:07 Freq: Status: Active Protocol: Document 11/28/17 11:10 EA (Rec: 11/29/17 13:27 EA [id number]) Manual Assessments Soft Tissue Assessment Soft Tissue Mobility Assessment Right hip is difficulty to assess due to muscle guarding and pain. however, patient right LE is withing functional during mobility. PT-OP-G Mobility & Gait Start: 11/28/17 11:07 Freq: Status: Active Protocol: Document 11/28/17 11:10 EA (Rec: 11/29/17 07:35 EA [id number]) OP Mobility Evaluation Transfers Sit to Stand No difficulty Bed to Chair Transfers Indep Car Transfers Indep Functional Movements Lifting and Carrying Indep with difficulty Squats With minmal difficulty OP Gait Assessment Gait Gait Assistance Required: Independent Gait Deviations General Gait Pattern Antalgic Comments Gait Comments Slight antalgic gait PT-OP-J Posture/Palpation/Skin Start: 11/28/17 11:07 Freq: Status: Active Protocol: Document 11/28/17 11:10 EA (Rec: 11/29/17 07:35 EA [id number]) Posture Evaluation Position Standing Evaluation View Lateral L-Spine Posture Increased Lordosis Palpation Assessment Location One Palpation Location Upper gluteals, Piriformis, lateral thigh Palpation Findings Muscle Guarding Tenderness Palpation Details Grade 2 tenderness, Tight piriformis, ITB PT-OP-K Range of Motion Start: 11/28/17 11:07 Freq: Status: Active Protocol: Document 11/28/17 11:10 EA (Rec: 11/29/17 07:35 EA [id number]) Lumbar Spine Range of Motion Lumbar Spine Active Degrees Testing Position standinf Flexion 50 Extension 10 Rotation Left 30 Rotation Right 30 Lateral Flexion Left 10 Lateral Flexion Right 15 ROM Limitations Soft Tissue Tightness Pain Comments Limitation due to pain and muscle guarding PT-OP-L Special Tests Start: 11/28/17 11:07 Freq: Status: Active Protocol: Document 11/28/17 11:10 EA (Rec: 11/29/17 07:35 EA [id number]) Special Tests Lumbar Spine Special Tests Straight Leg Raise Test Results + Hip Special Tests Piriformis Test Results Right + PT-OP-M Strength Start: 11/28/17 11:07 Freq: Status: Active Protocol: Document 11/28/17 11:10 EA (Rec: 11/29/17 07:35 EA [id number]) Hip Strength Hip Manual Muscle Testing Left Flexion (L2) 5 Normal Extension (S1) 5 Normal Abduction 5 Normal Adduction 5 Normal External Rotation 5 Normal Internal Rotation 5 Normal Right Reason Not Measured Pain Knee Strength Knee Manual Muscle Testing Right Flexion (S2) 5 Normal Extension (L3) 5 Normal Ankle/Foot Strength Ankle and Foot Manual Muscle Testing Right Dorsiflexion (L4) 4- Good- Plantarflexion (S1) 5 Normal Comments Pain increased with D/F and Hip flexion PT-OP-Q Treatments Start: 11/28/17 11:07 Freq: Status: Active Protocol: Document 01/03/18 13:06 EA (Rec: 01/03/18 13:44 EA [id number]) Cardio Equipment Recumbent Stepper (Sci-Fit) Duration (Minutes) 7 Resistance 1 Seat Position 12 Therapeutic Exercises Supine Exercises 4 Supine Exercise Name PPT with marching Reps/Minutes x 5SH x 5 reps Comments HEP components 3 Supine Exercise Name Figure of 4 Reps/Minutes x 30 SH Comments HEP components 2 Supine Exercise Name SKTC with PPT Reps/Minutes x 5SH x 5 reps each leg Comments HEP component 1 Supine Exercise Name PPT with SLR Reps/Minutes x 10 reps x 2 sets each leg Prone Exercises 2 Prone Exercise Name QL stretch: child pose Reps/Minutes x 15 SH x 3 reps 1 Prone Exercise Name Quadruped lumbar flexion Reps/Minutes x 10 reps x 1 Sitting Exercises 1 Sitting Exercise Name Lumbar stretch Reps/Minutes x 30 SH Standing Exercises 2 Standing Exercise Name sit to stand squat Reps/Minutes x 10 reps 1 Standing Exercise Name wall squat with PPT Reps/Minutes x 5SH x 5 reps x 2 sets Comments HEP Self-Care/Home Management Treatment Education Other Education Discussed lifting mechanics and HEP safety. PT-OP-R Modalities Start: 11/28/17 11:07 Freq: Status: Active Protocol: Document 12/27/17 13:06 EA (Rec: 12/27/17 13:48 EA [id number]) Hot Pack/Cold Pack Treatment Hot Pack Location Right low back and post hip PT-OP-T Assessment and Plan Start: 11/28/17 11:07 Freq: Status: Active Protocol: Document 01/03/18 13:06 EA (Rec: 01/03/18 13:44 EA [id number]) Physical Therapy Assessment Assessment Summary Assessment No discomfort noted except with piriformis stretch. Patient exhibits high understanding about her condition during session. Patient recommended to see after 2 weeks and continue with HEP as pain and other symptoms is not present in the past few days. Physical Therapy Plan Next Visit Focus/Plan Next Note Type Treatment Note Next Visit Plan Possible discharge next session if no more complaint.
--- NOTE | 2018-01-17 14:32 | PT.OTN ---
Physical Therapy Treatment Note PT-OP-A Visit Information Start: 11/28/17 11:07 Freq: Status: Active Protocol: Document 01/17/18 13:31 EA (Rec: 01/17/18 13:44 EA [id number]) Out-Patient Physical Therapy Visit Information Visit Information Visit Type Treatment Note Visit Start Time 13:00 Visit Stop Time 13:30 Total Visit Minutes 30 Visit Number 7 PT-OP-B Current Condition Start: 11/28/17 11:07 Freq: Status: Active Protocol: Document 11/28/17 11:10 EA (Rec: 11/28/17 11:15 EA [id number]) Current Condition History of Current Condition Onset Date 3 wks aga Current Complaints Right low back, upper gluteal, and lateral thigh pain History of Current Condition Present condition started 3 weeks ago; state 3 days after standing hip ROM exercises. Patient reports no recall any significant injury prior to condition. Patient went to her physician and was given OTC medication as she was going to [place] for 2 weeks vacation. Patient reports pain was managed temporarily with precribed pain meds during her vacation. Today she reported that pain intensity varies with position 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 Denies loss of strength but numbness, burning and shooting pain from post buttocks down to right anterior anterolat thigh in which walking, lifting, and sitting aggravates condition. Prior Treatments and Tests Precribed pain meds Future Testing and Treatments Planned Scheduled for X-Ray MRI- as necessary. 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 Current Functional Impairments (Reported) Functional Limitations- ADL's Indep Functional Limitations- Mobility/Gait Indep Functional Limitations- Work/School On sick leave Functional Limitations- Recreation/ Unable to perform light Hobbies fitness exercises routine due to pain Personal Factors Other Personal Factors That May Effect None Therapy/Recovery PT-OP-C Subjective Start: 11/28/17 11:07 Freq: Status: Active Protocol: Document 01/17/18 13:31 EA (Rec: 01/17/18 13:44 EA [id number]) OP-PT Subjective Patient Comments Patient Comments Pt reports she has been complaint home; states she has beend oing leg lifts as well and there were times low back is very stiff; denies pain but stiff only. Patient also reports right leg tingling is not as frequent as before. Patient mentioned that she is not back to work as she require to see her doctor before coming back to work which it might be after 2 weeks. PT-OP-F Manual Assessment Start: 11/28/17 11:07 Freq: Status: Active Protocol: Document 11/28/17 11:10 EA (Rec: 11/29/17 13:27 EA [id number]) Manual Assessments Soft Tissue Assessment Soft Tissue Mobility Assessment Right hip is difficulty to assess due to muscle guarding and pain. however, patient right LE is withing functional during mobility. PT-OP-G Mobility & Gait Start: 11/28/17 11:07 Freq: Status: Active Protocol: Document 11/28/17 11:10 EA (Rec: 11/29/17 07:35 EA [id number]) OP Mobility Evaluation Transfers Sit to Stand No difficulty Bed to Chair Transfers Indep Car Transfers Indep Functional Movements Lifting and Carrying Indep with difficulty Squats With minmal difficulty OP Gait Assessment Gait Gait Assistance Required: Independent Gait Deviations General Gait Pattern Antalgic Comments Gait Comments Slight antalgic gait PT-OP-J Posture/Palpation/Skin Start: 11/28/17 11:07 Freq: Status: Active Protocol: Document 11/28/17 11:10 EA (Rec: 11/29/17 07:35 EA [id number]) Posture Evaluation Position Standing Evaluation View Lateral L-Spine Posture Increased Lordosis Palpation Assessment Location One Palpation Location Upper gluteals, Piriformis, lateral thigh Palpation Findings Muscle Guarding Tenderness Palpation Details Grade 2 tenderness, Tight piriformis, ITB PT-OP-K Range of Motion Start: 11/28/17 11:07 Freq: Status: Active Protocol: Document 11/28/17 11:10 EA (Rec: 11/29/17 07:35 EA [id number]) Lumbar Spine Range of Motion Lumbar Spine Active Degrees Testing Position standinf Flexion 50 Extension 10 Rotation Left 30 Rotation Right 30 Lateral Flexion Left 10 Lateral Flexion Right 15 ROM Limitations Soft Tissue Tightness Pain Comments Limitation due to pain and muscle guarding PT-OP-L Special Tests Start: 11/28/17 11:07 Freq: Status: Active Protocol: Document 11/28/17 11:10 EA (Rec: 11/29/17 07:35 EA [id number]) Special Tests Lumbar Spine Special Tests Straight Leg Raise Test Results + Hip Special Tests Piriformis Test Results Right + PT-OP-M Strength Start: 11/28/17 11:07 Freq: Status: Active Protocol: Document 11/28/17 11:10 EA (Rec: 11/29/17 07:35 EA [id number]) Hip Strength Hip Manual Muscle Testing Left Flexion (L2) 5 Normal Extension (S1) 5 Normal Abduction 5 Normal Adduction 5 Normal External Rotation 5 Normal Internal Rotation 5 Normal Right Reason Not Measured Pain Knee Strength Knee Manual Muscle Testing Right Flexion (S2) 5 Normal Extension (L3) 5 Normal Ankle/Foot Strength Ankle and Foot Manual Muscle Testing Right Dorsiflexion (L4) 4- Good- Plantarflexion (S1) 5 Normal Comments Pain increased with D/F and Hip flexion PT-OP-Q Treatments Start: 11/28/17 11:07 Freq: Status: Active Protocol: Document 01/17/18 13:31 EA (Rec: 01/17/18 13:44 EA [id number]) Cardio Equipment Recumbent Bicycle Duration (Minutes) 5 Resistance 4 Therapeutic Exercises Supine Exercises 4 Supine Exercise Name PPT with marching Reps/Minutes x 5SH x 5 reps Comments HEP components 3 Supine Exercise Name Figure of 4 Reps/Minutes x 30 SH Comments HEP components 2 Supine Exercise Name SKTC with PPT Reps/Minutes x 5SH x 5 reps each leg Comments HEP component 1 Supine Exercise Name PPT with SLR Reps/Minutes x 10 reps x 2 sets each leg Prone Exercises 3 Prone Exercise Name Lower trunk rotation stretch Reps/Minutes x20 SH x 2 reps 2 Prone Exercise Name QL stretch: child pose Reps/Minutes x 15 SH x 3 reps 1 Prone Exercise Name Quadruped lumbar flexion Reps/Minutes x 10 reps x 1 Sitting Exercises 2 Sitting Exercise Name Sitted side bending AROM- active stretch Reps/Minutes x 10 reps AROM; X 3 reps x 15SH w/ stretch 1 Sitting Exercise Name Lumbar stretch Reps/Minutes x 30 SH Comments flexing towards the ground with box in front to support. Standing Exercises 3 Standing Exercise Name Floor to waist lift Resistance 20 lbs Reps/Minutes x 8 reps PT-OP-R Modalities Start: 11/28/17 11:07 Freq: Status: Active Protocol: Document 12/27/17 13:06 EA (Rec: 12/27/17 13:48 EA [id number]) Hot Pack/Cold Pack Treatment Hot Pack Location Right low back and post hip PT-OP-T Assessment and Plan Start: 11/28/17 11:07 Freq: Status: Active Protocol: Document 01/17/18 13:31 EA (Rec: 01/17/18 13:44 EA [id number]) Physical Therapy Assessment Assessment Summary Assessment Patient still have difficulty in engaging TrA or performing standing activities with neutral pelvis. Pt is educated with exercises such as leg lift that could potentially harm to her low back which she has been doing without my recommendation. Patient recommended to follow up in two weeks and possible discharge. Noted she performed treatment today with no discomfort and patient is ambulating w/ no dev. Physical Therapy Plan Next Visit Focus/Plan Next Note Type Re-Evaluation Next Visit Plan Possible discharge.
--- NOTE | 2018-01-31 14:39 | PT.OTN ---
Physical Therapy Treatment Note PT-OP-A Visit Information Start: 11/28/17 11:07 Freq: Status: Active Protocol: Document 01/31/18 14:22 EA (Rec: 01/31/18 14:32 EA [id number]) Out-Patient Physical Therapy Visit Information Visit Information Visit Type Treatment Note Visit Note Discharge this date Visit Start Time 13:00 Visit Stop Time 13:40 Total Visit Minutes 40 Visit Number 8 PT-OP-B Current Condition Start: 11/28/17 11:07 Freq: Status: Active Protocol: Document 11/28/17 11:10 EA (Rec: 11/28/17 11:15 EA [id number]) Current Condition History of Current Condition Onset Date 3 wks aga Current Complaints Right low back, upper gluteal, and lateral thigh pain History of Current Condition Present condition started 3 weeks ago; state 3 days after standing hip ROM exercises. Patient reports no recall any significant injury prior to condition. Patient went to her physician and was given OTC medication as she was going to [place] for 2 weeks vacation. Patient reports pain was managed temporarily with precribed pain meds during her vacation. Today she reported that pain intensity varies with position 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 Denies loss of strength but numbness, burning and shooting pain from post buttocks down to right anterior anterolat thigh in which walking, lifting, and sitting aggravates condition. Prior Treatments and Tests Precribed pain meds Future Testing and Treatments Planned Scheduled for X-Ray MRI- as necessary. 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 Current Functional Impairments (Reported) Functional Limitations- ADL's Indep Functional Limitations- Mobility/Gait Indep Functional Limitations- Work/School On sick leave Functional Limitations- Recreation/ Unable to perform light Hobbies fitness exercises routine due to pain Personal Factors Other Personal Factors That May Effect None Therapy/Recovery PT-OP-C Subjective Start: 11/28/17 11:07 Freq: Status: Active Protocol: Document 01/31/18 14:22 EA (Rec: 01/31/18 14:32 EA [id number]) OP-PT Subjective Patient Comments Patient Comments Pt reports no pain except only with stiffness most of the time; states achy pain with standing more than 45 minutes and sitting in a not comfortable chair > 10 mins. Patient would like to be discharge at this time as she feels no more improvement would occur and thinks that there nothing to help with arthritic back. Patient also expressed her opinion that she does not want to go back to same job due to difficulty of lifting and twisting. Pt mentioned that she will be seeing a occupational doctor as well today. PT-OP-F Manual Assessment Start: 11/28/17 11:07 Freq: Status: Active Protocol: Document 01/31/18 14:22 EA (Rec: 01/31/18 14:32 EA [id number]) Manual Assessments Soft Tissue Assessment Soft Tissue Mobility Assessment Slight limitation to side bending and extension PT-OP-G Mobility & Gait Start: 11/28/17 11:07 Freq: Status: Active Protocol: Document 01/31/18 14:22 EA (Rec: 01/31/18 14:32 EA [id number]) OP Mobility Evaluation Transfers Sit to Stand No difficulty Bed to Chair Transfers Indep Car Transfers Indep Functional Movements Lifting and Carrying Indep with difficulty Squats No difficulty OP Gait Assessment Gait Gait Assistance Required: Independent Gait Deviations General Gait Pattern Within Normal Limits Comments Gait Comments Normal with no diviation PT-OP-J Posture/Palpation/Skin Start: 11/28/17 11:07 Freq: Status: Active Protocol: Document 01/31/18 14:34 EA (Rec: 01/31/18 14:37 EA [id number]) Palpation Assessment Location One Palpation Location Left piriformis area; grade 1/ 4 Palpation Findings Tenderness PT-OP-K Range of Motion Start: 11/28/17 11:07 Freq: Status: Active Protocol: Document 01/31/18 14:34 EA (Rec: 01/31/18 14:37 EA [id number]) Lumbar Spine Range of Motion Lumbar Spine Active Degrees Testing Position Standing Flexion 50 Extension 30 Rotation Left 40 Rotation Right 40 Lateral Flexion Left 30 Lateral Flexion Right 30 ROM Limitations Soft Tissue Tightness PT-OP-L Special Tests Start: 11/28/17 11:07 Freq: Status: Active Protocol: Document 01/31/18 14:22 EA (Rec: 01/31/18 14:32 EA [id number]) Special Tests Hip Special Tests Piriformis Test Results sensitive PT-OP-M Strength Start: 11/28/17 11:07 Freq: Status: Active Protocol: Document 01/31/18 14:34 EA (Rec: 01/31/18 14:37 EA [id number]) Hip Strength Hip Manual Muscle Testing Left Flexion (L2) 5 Normal Extension (S1) 5 Normal Abduction 5 Normal Adduction 5 Normal External Rotation 5 Normal Internal Rotation 5 Normal Right Flexion (L2) 5 Normal Extension (S1) 5 Normal Adduction 5 Normal External Rotation 5 Normal Internal Rotation 5 Normal Knee Strength Knee Manual Muscle Testing Right Flexion (S2) 5 Normal Extension (L3) 5 Normal PT-OP-Q Treatments Start: 11/28/17 11:07 Freq: Status: Active Protocol: Document 01/31/18 14:22 EA (Rec: 01/31/18 14:32 EA [id number]) Therapeutic Exercises Supine Exercises 4 Supine Exercise Name PPT with marching Reps/Minutes x 5SH x 5 reps Comments HEP components 3 Supine Exercise Name Figure of 4 Reps/Minutes x 30 SH Comments HEP components 2 Supine Exercise Name SKTC with PPT Reps/Minutes x 5SH x 5 reps each leg Comments HEP component 1 Supine Exercise Name PPT with SLR Reps/Minutes x 10 reps x 2 sets each leg Prone Exercises 3 Prone Exercise Name Lower trunk rotation stretch Reps/Minutes x20 SH x 2 reps 2 Prone Exercise Name QL stretch: child pose Reps/Minutes x 15 SH x 3 reps 1 Prone Exercise Name Quadruped lumbar flexion Reps/Minutes x 10 reps x 1 Sitting Exercises 2 Sitting Exercise Name Sitted side bending AROM- active stretch Reps/Minutes x 10 reps AROM; X 3 reps x 15SH w/ stretch 1 Sitting Exercise Name Lumbar stretch Reps/Minutes x 30 SH Comments flexing towards the ground with box in front to support. Standing Exercises 2 Standing Exercise Name sit to stand squat Reps/Minutes x 10 reps 1 Standing Exercise Name wall squat with PPT Reps/Minutes x 5SH x 5 reps x 2 sets Comments HEP Self-Care/Home Management Treatment Education Patient Education [employer] Home Exercise Program Joint Protection Pain Management Posture PT-OP-R Modalities Start: 11/28/17 11:07 Freq: Status: Active Protocol: Document 12/27/17 13:06 EA (Rec: 12/27/17 13:48 EA [id number]) Hot Pack/Cold Pack Treatment Hot Pack Location Right low back and post hip PT-OP-T Assessment and Plan Start: 11/28/17 11:07 Freq: Status: Active Protocol: Document 01/31/18 14:22 EA (Rec: 01/31/18 14:32 EA [id number]) Physical Therapy Assessment Assessment Summary Assessment Patient exhibits no limitation to functional mobility and transfers at this time; discomfort only noted with right hip ER stretch but tolerated. Patient is discharge upon request. Physical Therapy Plan Discharge Physical Therapy Discharge Reasons Patient Request Discharge Comments No pain complaint at this time .
== END 2018-05-09 11:51 ==
LOC: PHYS 13:45
PROVIDERS: PCP Physician Assistant; Visit Provider Internal Medicine
DX: M54.41 Lumbago with sciatica, right side (principal)
CPT/HCPCS: 97010; 97014; 97110; 97140; 97162; 97530; 97535; G0283

== ENCOUNTER → 2019-05-21 09:49 | Outpatient (CLI) | payer BC, SELFPAY ==
[2019-05-21 11:40] LABS: Add Manual Diff / Slide Review NO; Basophils Absolute Auto 0 /uL (0-100); Basophils Percent Auto 0.7 % (0-2); Eosinophils Absolute Auto 200 /uL (0-450); Eosinophils Percent Auto 3.1 % (2-4); Hematocrit 39.8 % (36-46); Hemoglobin 13.9 g/dL (12.0-16.0); Lymphocytes Absolute Auto 2100 /uL (1100-4500); Lymphocytes Percent Auto 33.7 % (25-40); Mean Corpuscular HGB Conc 34.9 % (30-36); Mean Corpuscular Hemoglobin 32.5 PG (26-34); Mean Corpuscular Volume 93.1 fL (80-100); Monocytes Absolute Auto 400 /uL (0-900); Monocytes Percent Auto 6.8 % (3-14); Neutrophils Absolute Auto 3500 /uL (1500-7000); Neutrophils Percent Auto 55.7 % (50-75); Platelet Count 226 X10^3/uL (150-400); Red Blood Cell Count 4.28 X10^6/uL (4.0-5.2); Red Cell Distribution Width 12.9 % (11.6-14.8); White Blood Cell Count 6.3 X10^3/uL (4.5-11.0)
[2019-05-21 11:56] LABS: Alanine Aminotransferase 29 IU/L (<35); Albumin 4.2 g/dL (3.5-5.0); Albumin Globulin Ratio 1.3 (1.0-2.8); Alkaline Phosphatase 99 U/L (38-126); Aspartate Aminotransferase 31 IU/L (14-36); BUN Creatinine Ratio 12.9 (6-22); Bilirubin Total 0.5 mg/dL (0.2-1.3); Blood Urea Nitrogen 9 mg/dL (7-17); Calcium 9.4 mg/dL (8.4-10.2); Carbon Dioxide 29 mmol/L (22-32); Chloride 102 mmol/L (98-107); Cholesterol 228 mg/dL (140-199); Estimated Glomerular Filt Rate > 60.0 mL/min (>60); Globulin 3.3 g/dL (1.7-4.1); Glucose 105 mg/dL (80-110); HDL Cholesterol 47 mg/dL (40-60); HEMOLYSIS < 15 (0-50); LDL Cholesterol Calculated 148 mg/dL (<100); Potassium 4.8 mmol/L (3.4-5.1); Sodium 139 mmol/L (137-145); Total Protein 7.5 g/dL (6.3-8.2); Triglycerides 165 mg/dL (35-150)
[2019-05-21 12:14] LABS: Vitamin D 25 Hydroxy (D3) 37.9 ng/mL (30.0-100.0)
== END ==
PROVIDERS: PCP Physician Assistant; Referring Provider Physician Assistant; Visit Provider Physician Assistant
DX: E78.5 Hyperlipidemia, unspecified (principal); E55.9 Vitamin D deficiency, unspecified
CPT/HCPCS: 36415; 80053; 80061; 82306; 85025

== ENCOUNTER → 2019-11-26 10:44 | Outpatient (CLI) | payer BC, SELFPAY ==
[2019-11-26 12:27] LABS: Alanine Aminotransferase 35 IU/L (<35); Albumin 4.3 g/dL (3.5-5.0); Albumin Globulin Ratio 1.3 (1.0-2.8); Alkaline Phosphatase 97 U/L (38-126); Aspartate Aminotransferase 34 IU/L (14-36); BUN Creatinine Ratio 11.5 (6-22); Bilirubin Total 0.5 mg/dL (0.2-1.3); Blood Urea Nitrogen 9 mg/dL (7-17); Calcium 9.3 mg/dL (8.4-10.2); Carbon Dioxide 31 mmol/L (22-32); Chloride 103 mmol/L (98-107); Cholesterol 199 mg/dL (140-199); Estimated Glomerular Filt Rate > 60.0 mL/min (>60); Globulin 3.4 g/dL (1.7-4.1); Glucose 115 mg/dL (80-110); HDL Cholesterol 45 mg/dL (40-60); HEMOLYSIS < 15 (0-50); LDL Cholesterol Calculated 127 mg/dL (<100); Potassium 4.2 mmol/L (3.4-5.1); Sodium 137 mmol/L (137-145); Total Protein 7.7 g/dL (6.3-8.2); Triglycerides 137 mg/dL (35-150)
[2019-11-26 13:16] LABS: TSH w/ Reflex to FT4 3.14 uIU/mL (0.47-4.68)
== END ==
PROVIDERS: PCP Physician Assistant; Referring Provider Physician Assistant; Visit Provider Physician Assistant
DX: E66.9 Obesity, unspecified (principal); Z68.41 Body mass index [BMI] 40.0-44.9, adult; E03.9 Hypothyroidism, unspecified; E78.5 Hyperlipidemia, unspecified
CPT/HCPCS: 36415; 80053; 80061; 84443

== ENCOUNTER → 2022-05-23 12:57 | Outpatient (CLI) | payer MEDICARE, BC, SELFPAY ==
--- NOTE | 2022-05-23 | DI.MG.S_ITS ---
BILATERAL DIGITAL SCREENING MAMMOGRAM 3D/2D WITH CAD: 05/23/2022 CLINICAL: Routine screening. Family history of breast cancer. Comparison is made to exams dated: 11/27/2014 mammogram, 11/21/2012 mammogram, and 04/27/2011 mammogram - [facility]. Both breasts are almost entirely fatty (category a/<25% glandular tissue). Current study was also evaluated with a Computer Aided Detection (CAD) system. No significant masses, calcifications, or other findings are seen in either breast. There has been no significant interval change. IMPRESSION: NEGATIVE There is no mammographic evidence of malignancy. A 1 year screening mammogram is recommended. Based on the Tyrer Cuzick model (a risk assessment model) the patient's lifetime risk is 4.6% and her 10 year risk is 2.2%. According to the ACR, ACS, and NCCN guidelines, an annual breast MRI exam along with mammogram is recommended if the patient's lifetime risk is 20% or greater. This exam was interpreted at Station ID: [id number]. NOTE: For mammograms, a report in lay terms will be sent to the patient. Approximately 15% of breast malignancies will not be visualized mammographically. In the management of a palpable breast mass, a negative mammogram must not discourage biopsy of a clinically suspicious lesion. Electronically Signed By: Drew goldsmith/reji:05/23/2022 16:15:18 letter sent: Normal Exam ACR BI-RADS Category 1: Negative 3341F
== END ==
PROVIDERS: PCP Physician Assistant; Referring Provider Physician Assistant; Visit Provider Physician Assistant
DX: Z12.31 Encounter for screening mammogram for malignant neoplasm of breast (principal); Z80.3 Family history of malignant neoplasm of breast
CPT/HCPCS: 77063; 77067

== ENCOUNTER → 2023-08-01 12:09 | Outpatient (CLI) | payer MEDICARE, BC, SELFPAY ==
--- NOTE | 2023-08-01 12:13 | DI.RAD.S_ITS ---
PROCEDURE: XR DEXA AXIAL SKELETON INDICATIONS: Routine screening,mass and lump, left lower limb COMPARISON: None. FINDINGS: Lumbar Spine: Bone mineral density 1.293 g/cm2, T score 2.2, normal. Left Hip: Bone mineral density 1.116 g/cm2, T score 1.4, normal. Left Femoral Neck: Bone mineral density 0.926 g/cm2, T score 0.7, normal. Right Hip: Bone mineral density 1.073 g/cm2, T score 1.1, normal. Right Femoral Neck: Bone mineral density is 0.947 g/cm2, T score 0.9, normal. Fracture Risk Calculation (when applicable): 10-year fracture risk of a major osteoporotic fracture 9.5-9.7% and of a hip fracture 0.1-0.2%. (T score greater or equal to -1.0 to: NORMAL) (T score from -1.1 to -2.4: OSTEOPENIA) (T score less than or equal to -2.5: OSTEOPOROSIS) IMPRESSION: 1. Based on WHO criteria, the patient has normal bone mineral density. Follow-up guidelines as follows: Osteoporosis: Consider a repeat DEXA and Vertebral Fracture Assessment (VFA) exam in 2 years or sooner if medically necessary, to reassess this patient's status. Osteopenia: Consider a repeat DEXA in 2-3 years to reassess this patient's status, or if there is a new clinical indication. Normal: Consider a repeat DEXA in 5 years or sooner, or if there is a new clinical indication. Dictated by: Raul Vieyra M.D. on 08/01/2023 at 16:49 Approved by: Raul Vieyra M.D. on 08/01/2023 at 16:51
--- NOTE | 2023-08-01 12:14 | DI.MG.S_ITS ---
BILATERAL DIGITAL SCREENING MAMMOGRAM 3D/2D WITH CAD: 08/01/2023 CLINICAL: Routine screening. Family history of breast cancer. Comparison is made to exams dated: 05/23/2022 mammogram, 11/27/2014 mammogram, and 11/21/2012 mammogram - [facility]. Both breasts are almost entirely fatty (category a/<25% glandular tissue). Current study was also evaluated with a Computer Aided Detection (CAD) system. No significant masses, calcifications, or other findings are seen in either breast. There has been no significant interval change. IMPRESSION: NEGATIVE There is no mammographic evidence of malignancy. A 1 year screening mammogram is recommended. Based on the Tyrer Cuzick model (a risk assessment model) the patient's lifetime risk is 4.4% and her 10 year risk is 2.2%. According to the ACR, ACS, and NCCN guidelines, an annual breast MRI exam along with mammogram is recommended if the patient's lifetime risk is 20% or greater. This exam was interpreted at Station ID: [id number]. NOTE: For mammograms, a report in lay terms will be sent to the patient. Approximately 15% of breast malignancies will not be visualized mammographically. In the management of a palpable breast mass, a negative mammogram must not discourage biopsy of a clinically suspicious lesion. Electronically Signed By: Drew goldsmith/reji:08/01/2023 17:51:57 letter sent: Normal Exam ACR BI-RADS Category 1: Negative 3341F
--- NOTE | 2023-08-01 12:14 | DI.US.S_ITS ---
PROCEDURE: US EXTREMITY NONVASC LOWER LT INDICATIONS: LEFT ANTERIOR ANKLE LUMP TECHNIQUE: Real-time scanning was performed of the left ankle , with image documentation. COMPARISON: None. Findings and impression: At the area of interest at the left ankles, there is a subcutaneous isoechoic well-circumscribed mass measuring 2.6 x 0.8 x 1.5 cm. Differential includes a lipoma Clinical followup is recommended. If there is new or worsening clinical concern, reimaging could be obtained. Dictated by: Gamaliel Bauer M.D. on 08/01/2023 at 16:05 Approved by: Gamaliel Bauer M.D. on 08/01/2023 at 16:06
== END ==
LOC: RAD 12:12
PROVIDERS: PCP Physician Assistant; Referring Provider Physician Assistant; Visit Provider Physician Assistant
DX: R22.42 Localized swelling, mass and lump, left lower limb (principal); Z12.31 Encounter for screening mammogram for malignant neoplasm of breast; Z80.3 Family history of malignant neoplasm of breast; R92.313 Mammographic fatty tissue density, bilateral breasts; Z78.0 Asymptomatic menopausal state
CPT/HCPCS: 76882; 77063; 77067; 77080

== ENCOUNTER → 2023-08-16 11:11 | Outpatient (CLI) | payer MEDICARE, BC, SELFPAY ==
--- NOTE | 2023-08-16 11:14 | DI.RAD.S_ITS ---
PROCEDURE: XR LUMBAR SPINE 2-3V INDICATIONS: BACK PAIN TECHNIQUE: 3 views of the lumbar spine were acquired. COMPARISON: [facility], , XR LUMBAR SPINE 2-3V, 11/30/2017, 10:29. FINDINGS: Bones: 5 max-zdf-auxrytd vertebrae are present. Minimal multilevel retrolisthesis. Disc space height loss most pronounced at L4-L5 and L5-S1. Small vertebral body osteophytes. Facet joint hypertrophy. No vertebral body compression fractures. No suspicious bony lesions. Soft tissues: Overlying bowel gas pattern is normal. No suspicious soft tissue calcifications. IMPRESSION: Moderate degenerative changes in the lumbar spine. Not significantly changed compared to 2018. Dictated by: Fred Bowden M.D. on 08/16/2023 at 21:16 Approved by: Fred Bowden M.D. on 08/16/2023 at 21:18
== END ==
PROVIDERS: PCP Physician Assistant; Referring Provider Physician Assistant; Visit Provider Physician Assistant
DX: M51.36 Other intervertebral disc degeneration, lumbar region (principal); M47.816 Spondylosis without myelopathy or radiculopathy, lumbar region; M54.50 Low back pain, unspecified
CPT/HCPCS: 72100